=== PATIENT | male | born 1985 | race Caucasian/White ===

== ENCOUNTER 2018-01-25 18:39 | Emergency (ER) | payer MEDICAID ==
[2018-01-25] MEDS: ALBUTEROL 0.083% (NEB) 2.5 MG/3 ML AMP HHN (19:26)
[2018-01-25] MEDS: IPRATROPIUM (NEB) 0.5 MG/2.5 ML AMP HHN (19:27)
== END 2018-01-25 19:58 | disposition home or self-care (01) ==
LOC: FTE 18:39
DX: J45.901 Unspecified asthma with (acute) exacerbation (principal)
CPT/HCPCS: 94664; 99284-25